=== PATIENT | male | born 1960 | race Caucasian/White ===

== ENCOUNTER 2017-03-24 07:09 | Day surgery (SDC) | payer BC ==
[~2017-03-24 07:09] MED LIST: Cefuroxime 10 MG/ML SYRINGE EYERT SCH; Lidocaine 1% PF 2 ML SDV INJECT SCH; Pilocarpine 4% Ophth Soln 15 ML Bot EYERT SCH
[2017-03-24] MEDS: Polymyxin B/Trimethoprim 10 ML Bottle EYERT SCH ×3 (07:24→08:50)
[2017-03-24] MEDS: Brimonidine 0.2% Ophth Soln 5 ML Bottle EYERT SCH ×3 (07:29→08:50)
[2017-03-24] MEDS: Phenylephrine 2.5% Ophth Soln 2 ML Bot EYERT SCH ×5 (07:34→08:35)
--- NOTE | 2017-03-24 07:37 | PCM.PREANE ---
Preanesthetic Assessment - Anesthesia/Transfusion/Family Hx Anesthesia History: Prior Anesthesia Without Reaction Family History of Anesthesia Reaction: No Transfusion History: No Prior Transfusion(s) Intubation History: Unknown - Review of Systems General: No Symptoms Pulmonary: No Symptoms (quit smoking 1985) Cardiovascular: No Symptoms (HTN) Gastrointestinal: No Symptoms Neurological: No Symptoms Other: Reports: None (kidney stones history of) - Physical Assessment NPO Status Date: 03/23/17 NPO Status Time: 17:00 Pulse: 65 O2 Sat by Pulse Oximetry: 95 Respiratory Rate: 16 Blood Pressure: 168/88 Vital Signs: Last Vital Signs Temp 36.3 C 03/24/17 07:10 Pulse 65 03/24/17 07:10 Resp 16 03/24/17 07:10 BP 168/88 H 03/24/17 07:10 Pulse Ox 95 03/24/17 07:10 Height: 1.96 m Weight: 127.006 kg ASA Class: 2 Mental Status: Alert & Oriented x3 Airway Class: Mallampati = 2 Dentition: Reports: Normal Dentition, Caries Thyro-Mental Finger Breadths: 3 Mouth Opening Finger Breadths: 3 ROM/Head Extension: Full Lungs: Clear to Auscultation, Normal Respiratory Effort Cardiovascular: Regular Rate, Regular Rhythm, No Murmurs - Allergies Allergies/Adverse Reactions: Allergies Allergy/AdvReac Type Severity Reaction Status Date / Time Penicillins Allergy Cannot Verified 03/23/17 10:34 Remember - Anesthesia Plan Pre-Op Medication Ordered: None - Acknowledgements Anesthesia Type Planned: MAC Pt an Appropriate Candidate for the Planned Anesthesia: Yes Alternatives and Risks of Anesthesia Discussed w Pt/Guardian: Yes Pt/Guardian Understands and Agrees with Anesthesia Plan: Yes PreAnesthesia Questionnaire - HOME MEDS Home Medications: Home Meds Lisinopril 20 mg PO DAILY 03/23/17 [History] Meloxicam [Meloxicam] 15 mg PO DAILY 03/23/17 [History] Rosuvastatin [Crestor] 10 mg PO DAILY 03/23/17 [History] traMADol [Ultram] 50 mg PO TID PRN 03/23/17 [History] - CURRENT (IN HOUSE) MEDS Current Meds: Current Medications Brimonidine Tartrate (Alphagan 0.2% Ophth Soln) 0 ml EYERT ASDIRECTED ALVARO Last Admin: 03/24/17 07:29 Dose: 1 drop Cefuroxime Sodium (Zinacef) 0 mg EYERT ASDIRECTED [facility] Lidocaine HCl (Xylocaine-Mpf 1%) 10 ml INJECT ASDIRECTED [facility] Phenylephrine HCl ([place]et-Synephrine 2.5% Ophth Soln) 0 ml EYERT ASDIRECTED [facility]VAR[facility] Pilocarpine HCl (Pilocar 4% Ophth Soln) 0 ml EYERT ASDIRECTED [facility] Polymyxin/Trimethoprim Sulfate (Polytrim Ophth Soln) 0 ml EYERT ASDIRECTED [facility] Last Admin: 03/24/17 07:24 Dose: 1 drop Tetracaine HCl (Tetracaine 0.5% Steri-Unit Pallavi) 0 ml EYERT ASDIRECTED ALVARO Tropicamide (Mydriacyl 1% Ophth Soln) 0 ml EYERT ASDIRECTED [facility] Stop: 03/27/17 06:01
[2017-03-24] MEDS: Tetracaine HCl/PF 0.5% 4 ML Bottle EYERT SCH ×2 (08:26→08:42)
--- NOTE | 2017-03-24 08:53 | PCM48HPAN ---
Post Anesthesia Note - EVALUATION WITHIN 48HRS OF ANESTHETIC Vital Signs in Normal Range: Yes Patient Participated in Evaluation: Yes Respiratory Function Stable: Yes Airway Patent: Yes Cardiovascular Function Stable: Yes Hydration Status Stable: Yes Pain Control Satisfactory: Yes Nausea and Vomiting Control Satisfactory: Yes Mental Status Recovered: Yes
== END 2017-03-24 08:59 | disposition home or self-care (01) ==
LOC: JD.SDS 07:09
PROVIDERS: ATTEND Ophthalmology
DX: H25.811 Combined forms of age-related cataract, right eye (principal); I10 Essential (primary) hypertension; Z98.890 Other specified postprocedural states; Z98.42 Cataract extraction status, left eye; Z83.518 Family history of other specified eye disorder; Z87.891 Personal history of nicotine dependence; Z79.899 Other long term (current) drug therapy; Z79.52 Long term (current) use of systemic steroids
CPT/HCPCS: 66984; C1780; J0697; A9270-GY

== ENCOUNTER 2021-03-19 07:23 | Day surgery (SDC) | payer BC ==
--- NOTE | 2021-03-19 07:12 | PCM.PREANE ---
Preanesthetic Assessment - Anesthesia/Transfusion/Family Hx Anesthesia History: Prior Anesthesia Without Reaction Family History of Anesthesia Reaction: No Transfusion History: No Prior Transfusion(s) Intubation History: Unknown - Review of Systems General: No Symptoms Pulmonary: No Symptoms Cardiovascular: No Symptoms Gastrointestinal: No Symptoms Neurological: No Symptoms Other: Reports: None - Physical Assessment NPO Status Date: 03/18/21 NPO Status Time: 04:30 ASA Class: 2 Mental Status: Alert & Oriented x3 Airway Class: Mallampati = 2 Dentition: Reports: Normal Dentition Thyro-Mental Finger Breadths: 3 Mouth Opening Finger Breadths: 3 ROM/Head Extension: Full Lungs: Clear to Auscultation, Normal Respiratory Effort Cardiovascular: Regular Rate, Regular Rhythm - Allergies Allergies/Adverse Reactions: Allergies Allergy/AdvReac Type Severity Reaction Status Date / Time Penicillins Allergy Cannot Verified 03/23/17 10:34 Remember - Acknowledgements Anesthesia Type Planned: MAC Pt an Appropriate Candidate for the Planned Anesthesia: Yes Alternatives and Risks of Anesthesia Discussed w Pt/Guardian: Yes Pt/Guardian Understands and Agrees with Anesthesia Plan: Yes PreAnesthesia Questionnaire HEENT History: Reports: Impaired Vision Cardiovascular History: Reports: High Cholesterol, Hypertension Respiratory History: Reports: None Gastrointestinal History: Reports: Other (See Below) (dysphagia) Genitourinary History: Reports: None Musculoskeletal History: Reports: None Neurological History: Reports: None Psychiatric History: Reports: None Endocrine/Metabolic History: Reports: None - Past Surgical History GI Surgical History: Reports: Colonoscopy, Hernia, Inguinal Male Surgical History: Reports: Kidney Stone Extraction - SUBSTANCE USE Tobacco Use Status *Q: Former Tobacco User - HOME MEDS Home Medications: Home Meds Lisinopril 20 mg PO DAILY 03/23/17 [History] Meloxicam 15 mg PO DAILY 03/23/17 [History] Rosuvastatin [Crestor] 10 mg PO DAILY 03/23/17 [History] traMADol [Ultram] 50 mg PO TID PRN 03/23/17 [History] - CURRENT (IN HOUSE) MEDS Current Meds: Current Medications Lactated Ringer's (Ringers, Lactated) 1,000 mls @ 125 mls/hr IV ASDIRECTED ALVARO Stop: 03/19/21 23:00 Lidocaine/Sodium Bicarbonate (Lidocaine 1%/Sod Bicarbonate In Ns 8.4% 1 Ml Syringe) 0.25 ml IDERM ONETIME PRN PRN Reason: Prior to IV Start Stop: 03/19/21 18:00 Sodium Chloride (Sodium Chloride 0.9% 10 Ml Syringe) 10 ml FLUSH ASDIRECTED PRN PRN Reason: Keep Vein Open Stop: 03/19/21 18:00
[~2021-03-19 07:23] MED LIST changes: -Cefuroxime 10 MG/ML SYRINGE EYERT SCH; +Lactated Ringers 1,000 ML IV SCH; -Lidocaine 1% PF 2 ML SDV INJECT SCH; +Lidocaine 1%/Sod Bicarbonate in NS 8.4% 1 ML Syringe IDERM PRN; -Pilocarpine 4% Ophth Soln 15 ML Bot EYERT SCH; +Sodium Chloride 0.9% 10 ML Syringe FLUSH PRN
[2021-03-19] MEDS ORDERED: Propofol 200 MG/20 ML SDV ONE ×2 (07:24)
[2021-03-19] MEDS ORDERED: Midazolam 1 MG/ML 2 ML SDV ONE (07:24)
[2021-03-19] MEDS ORDERED: Lidocaine 1% 4 ML ONE (07:24)
[2021-03-19] MEDS ORDERED: fentaNYL 100 MCG/2 ML SDV ONE (07:25)
--- NOTE | 2021-03-19 09:04 | PCM48HPAN ---
Post Anesthesia Note - EVALUATION WITHIN 48HRS OF ANESTHETIC Vital Signs in Normal Range: Yes Patient Participated in Evaluation: Yes Respiratory Function Stable: Yes Airway Patent: Yes Cardiovascular Function Stable: Yes Hydration Status Stable: Yes Pain Control Satisfactory: Yes Nausea and Vomiting Control Satisfactory: Yes Mental Status Recovered: Yes Vital Signs: Last Vital Signs Temp 36.1 C 03/19/21 06:55 Pulse 53 L 03/19/21 06:55 Resp 18 03/19/21 06:55 BP 149/91 H 03/19/21 06:55 Pulse Ox 98 03/19/21 06:55
--- NOTE | 2021-03-19 09:05 | PCM.PRNOTE ---
- Free Text/Narrative Note: Date: 03/19/2021 Procedure: diagnostic esophagogastroduodenoscopy and colonoscopy Indication: dysphagia, weight loss, no prior colon cancer screening Endoscopist: Jon Devine MD Findings: abnormal proximal gastric mucosa with cobblestone appearance and friability. Excellent prep, cecum reached. Extensive sigmoid diverticulosis, internal hemorrhoids. Detailed Report: The patient was taken to the endoscopy suite and placed in left lateral decubitus position. Timeout was performed and monitored anesthesia care was initiated. A bite-block was placed and the endoscope was inserted into the mouth. The scope was advanced to the distal duodenum with ease. Duodenal mucosa appeared normal. A biopsy of mucosa from the duodenal bulb was obtained with cold forceps. The scope was withdrawn into the stomach. The distal stomach including the antrum and pylorus appeared grossly normal. A biopsy of antral mucosa was obtained with cold forceps. Along the anterior wall of the body and around the cardia there appeared to be abnormal mucosa with cobblestone appearance and friability. No discrete ulceration or obvious mass was apparent. Several biopsies of this tissue were obtained with cold forceps. On retroflexion, no significant hiatal hernia was appreciated. The scope was withdrawn into the distal esophagus. The Z-line appeared relatively normal without evidence of gross metaplasia or esophagitis. Biopsies of the distal esophageal mucosa were obtained with cold forceps. The remainder of the esophagus appeared relatively normal. The visualized larynx appeared normal as well. Air had been suctioned from the stomach prior to withdrawal of the scope. The patient tolerated this portion of the procedure well. Next, attention was turned to colonoscopy. The anus appeared normal. Digital rectal exam was unremarkable and the prostate felt normal. The colonoscope was inserted and adv anced all the way to the cecum. There was some redundancy of the colon and extensive diverticular disease of the sigmoid colon. The prep was overall very good. The cecum was visualized. The scope was slowly withdrawn and mucosal surfaces carefully inspected. No polyps were identified. As previously mentioned, there is extensive diverticulosis mostly confined to the sigmoid colon. On retroflexion in the rectum, moderate internal hemorrhoids were noted. Air was suctioned from the distal colon and rectum prior to withdrawal of the scope. The patient tolerated the procedure well.
== END 2021-03-19 09:34 | disposition home or self-care (01) ==
LOC: JD.SDS 07:23
PROVIDERS: ATTEND Surgery
DX: R63.4 Abnormal weight loss (principal); C16.9 Malignant neoplasm of stomach, unspecified; R13.10 Dysphagia, unspecified; K57.30 Diverticulosis of large intestine without perforation or abscess without bleeding; K64.8 Other hemorrhoids; I10 Essential (primary) hypertension; E78.00 Pure hypercholesterolemia, unspecified; R55 Syncope and collapse; I78.1 Nevus, non-neoplastic; K29.50 Unspecified chronic gastritis without bleeding; K31.89 Other diseases of stomach and duodenum; Z88.0 Allergy status to penicillin; Z79.899 Other long term (current) drug therapy; Z98.890 Other specified postprocedural states; Z87.891 Personal history of nicotine dependence
CPT/HCPCS: 43239; 45378; J2250; J2704; J3010; J7120; 00813

== ENCOUNTER 2022-04-23 16:50 | Emergency (ER) | payer BC | END 2022-04-23 21:55 | disposition home or self-care (01) | LOC: JD.ED 16:50 | DX: K22.2 Esophageal obstruction (principal); R09.89 Other specified symptoms and signs involving the circulatory and respiratory systems; I10 Essential (primary) hypertension; E78.00 Pure hypercholesterolemia, unspecified; Z88.0 Allergy status to penicillin; Z79.899 Other long term (current) drug therapy | CPT/HCPCS: 36415; 70360; 70360-26; 71046; 71046-26; 80053; 85025; 99283 ==

== ENCOUNTER 2022-04-24 12:13 | Emergency (ER) | payer BC ==
[2022-04-24] MEDS ORDERED: Dextrose 5%-Lactated Ringers 1,000 ML IV SCH (13:00)
[2022-04-24 13:39] LABS: ESTIMATED GFR 100 mL/min (>60)
[2022-04-24 15:14] LABS: CORONAVIRUS COVID-19 NAA NEGATIVE (NEGATIVE)
== END 2022-04-24 14:50 | disposition home or self-care (01) ==
LOC: JD.ED 12:13
DX: K22.2 Esophageal obstruction (principal); I11.0 Hypertensive heart disease with heart failure; I50.9 Heart failure, unspecified; Z88.0 Allergy status to penicillin; Z79.899 Other long term (current) drug therapy; Z20.822 Contact with and (suspected) exposure to COVID-19
CPT/HCPCS: 0241U; 36415; 80053; 83735; 83880; 85025; 85610; 85730; 86140; 93005; 96360; 99284; J7121